=== PATIENT | female | born 1935 | race Caucasian/White ===

== ENCOUNTER → 2017-04-03 | Outpatient (CLI) | payer OTHER, BC ==
[~2017-04-03] VITALS: Ht 165.1 cm; Wt 58.3 kg
[~2017-04-03] MED LIST: AMBIEN PO; AMITRIPTYLINE H10 M1 PO; AMITRIPTYLINE H25 M2 PO; APAP500 PO; AUGMENTIN 875875 MG PO; B-12; B-12 IJ; BENEFIBER1 G1; BENEFIBER1 G1 PO; CALCIUM 500 +1 EAC5 PO; CALTRATE-600 W1 EACH; CELEBREX 200 M200 MG PO; CENTRUM SILVER1 EAC1 PO; CENTRUM SILVER1 EAC4 PO; CITRACAL PLUS1 EACH PO; COMPLEX B-1001 EACH PO; CYMBALTA30 MG PO; EQL OMEGA 3 FI1 EACH PO; ESTRACE0.5 MG PO; ESTRODIAL PO; FIORICET; FIORINAL CAPSUL1 CA1 PO; FLEXERIL PO; GAVISCON ES CH1 EAC1 PO; GLUCOSAMINE &1 EAC1 PO; HYDROCODON-ACE1 EAC5 PO; HYDROCODON-ACE1 EACH PO; LEVOTHROID100 MC1 PO; LEVOTHYROXIN0.075 MG PO; LEVOXYL75 MCG PO; LOMOTIL TABLET1 EACH PO; LUTEIN 15 MG S1 EACH PO; MAALOX PLUS X PO; MEDROLDOSEPACK PO; MOBIC7.5 MG PO; NEXIUM40 MG PO; OMEPRAZOLE40 MG PO; ONDANSETRON HCL4 M2 PO; OSTEO BI FLEX; PANTOPRAZOLE SO40 M1 PO; PREMARIN0.3 MG PO; PROBIOTIC1 EAC1 PO; REMERON15 MG PO; STOOL SOFTENER1 EAC2 PO; TRAMADOL; TRAMADOL 50 MG50 MG PO; TUMS PO; VITAMIN B 12 PO; VITAMIN B-125000 MCG SL; VITAMIN D-32000 UNIT PO; VITAMIN D35000 UNI1 PO; XANAX 0.5 MG0.5 MG PO; XANAX XR1 MG PO; [UNRECOGNIZED DRUG - OTHER]
[2017-04-03 13:17] VITALS: BP 112/62
== END ==
LOC: PAIN 07:14
DX: M47.22 Other spondylosis with radiculopathy, cervical region (principal); M48.02 Spinal stenosis, cervical region; M50.320 Other cervical disc degeneration, mid-cervical region, unspecified level; M53.3 Sacrococcygeal disorders, not elsewhere classified; M54.5 Low back pain; F32.9 Major depressive disorder, single episode, unspecified; Z79.899 Other long term (current) drug therapy

== ENCOUNTER → 2018-02-10 | Outpatient (CLI) | payer OTHER, BC ==
[~2018-02-10] VITALS: Ht 165.1 cm; Wt 59.5 kg
[~2018-02-10] MED LIST changes: +EXCEDRIN CAPLE1 EACH PO; +TYLENOL EXTRA500 MG PO
--- NOTE | ~2018-02-10 | HPC ---
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 The patient is in Pain Clinic today for a 25-minute consultation. She was last seen in March of 2017. In the last few months, she has had symptoms that have been consistent with TIA. I guess there has been some controversy. The hospitalist at a hospital in [place] diagnosed her with TIA. Dr. Lala, primary care physician felt that this might have been in question. She has had severe headaches since. These are occipital in nature then radiate into the frontal region. She has a history of migraines, but these have been different. Headaches have been daily with increasing intensity since she had the supposed TIAs. No additional workup has been done for possible carotid disease. She will be seeing her primary care physician soon in [place]. Today, she reports that overall her pain is 8/10 in the low back. She has pain in both the sacroiliac joints as well as some exquisite tenderness and discomfort in the left hip region. This is mostly overlying the trochanter. Pain is worse with standing and weightbearing. She is fairly comfortable in seated position. Medications include a list from the hospital, some of which she is not taking. When discharged from the hospital, she was given a prescription for ibuprofen 800 mg 3 times daily. She also brought with me her lab work from that hospitalization, which shows that she has an estimated glomerular filtration rate of 54. We talked about the potential nephrotoxicity of high-dose nonsteroidal anti-inflammatory drugs. She also has dyspepsia in the past. It is probably good that she has not been taking it. I think that may not be the best drug for her. Also considering that there are also issues associated with coagulation related to nonsteroidal anti-inflammatory drugs, I think she needs to be cautious with them. In the past, she has had a prescription for hydrocodone, although her primary care physician will not prescribe it for her. The dose that seems to be effective for is about one-half tablet of hydrocodone 5/325 tablet per day. This equates to a morphine mg equivalent of 5 per day. At maximum dose, it would be 10 per day. I had seen no reason why she should not take hydrocodone in lieu of the more dangerous nonsteroidal anti-inflammatory drugs in her situation. [address] [address] PAIN MANAGEMENT CONSULTATION Name: YEMI CHOI Room #: REG RAHEEM Dangelo#: [id number] Admission: 02/10/18 Attend Phys: Reno Ordaz MD Discharge: Date of : 35 Report #: [id number] She has always responded well to radiofrequency ablation of the L5 dorsal ramus, S1, S2 and S3 posterior rami. We have a technique that we have shown to be helpful over the years and the duration of response oftentimes is in excess of 6 months. I have agreed to schedule her back to the clinic for this procedure. I noted that we have in the past done both sides; however, more recently, we have been doing one side at a time as required by Medicare. She is on no blood thinners. PQRS reviewed on physical exam shows that she does have a history of osteoarthritis, particularly of the hip. She has a BMI of 21. Blood pressure is 132/70, heart rate 64. She is not a fall risk, having no use of cane or walker. She is on no blood thinners and no opioids at this time. The rest of physical exam reveals a jenny 82-year-old, appears younger than her stated age. She can independently move from sitting to standing without using her arms to push up from the chair. Good leg strength is noted. She has antalgic features, mostly due to pain in the left hip. Straight leg raising is negative. She has pain on the left with internal and external rotation and localized tenderness of the greater trochanter. Pain on the right is minimal with rotation of the hip joint. She does have a positive KIRK causing contralateral sacroiliac joint pain consistent with her hypermobility sacroiliac joint pain. IMPRESSION: 1. Post-laminectomy syndrome with fusion with bilateral sacroiliac joint pain, worse on the left. 2. Possible transient ischemic attack with no recent symptoms. 3. History of osteoarthritis of the hip with MRI evidence of labral tear in 2010. This is likely not improved. She now has similar symptoms on the left. PLAN: Follow up for sacroiliac joint radiofrequency ablation in 1 week. Given her good response historically, diagnostic injections are not necessary. By: [id number] Reno Ordaz MD /nt
[2018-02-10 10:13] VITALS: BP 132/70
== END ==
LOC: PAIN 07:07
DX: M53.3 Sacrococcygeal disorders, not elsewhere classified (principal); M96.1 Postlaminectomy syndrome, not elsewhere classified; M16.12 Unilateral primary osteoarthritis, left hip

== ENCOUNTER → 2018-02-17 | Outpatient (CLI) | payer OTHER, BC ==
[~2018-02-17] VITALS: Ht 165.1 cm; Wt 60.1 kg
--- NOTE | ~2018-02-17 | O ---
[facility] [place] [address] OPERATIVE REPORT Name: YEMI CHOI Room #: REG [facility] MMarti.#: [id number] Admission: 02/17/18 Attend Phys: Reno Ordaz MD Discharge: Date of : 35 Report #: [id number] THIS REPORT FOR: //name// CC: Reno Ordaz VENUS TOÑITOPATYJACKI A followup visit for chronic sacroiliac joint pain, sacroiliitis, status post laminectomy with fusion. She returns to clinic today for her radiofrequency procedure discussed in the note of 02/10/2018. We have received preauthorization. The procedure is well understood by the patient as this will be a repeat procedure. We have performed this intermittently since 2011 with good results. There have been no changes in her health history since our last visit. IMPRESSION: Lumbar spondylosis with sacroiliac joint pain, status post extensive lumbar fusion. PROCEDURE: Left sacroiliac joint denervation under fluoroscopic guidance. DESCRIPTION OF PROCEDURE: After informed consent, the patient was taken to fluoroscopic suite. She was placed prone, skin was prepped with ChloraPrep. Skin was anesthetized to the left of the sacrum and inferior. Two 20-gauge 15 cm RFK needles with 10-mm active tip were used for the procedure. [place] were advanced in tandem posterior to and parallel to the neural foramen. The first position was lateral to the lateral branches of S3. Once in position, motor and sensory testing was performed and then local anesthetic injected through each needle. 1% lidocaine was utilized. I then performed simultaneous denervation using 80 degrees for 90 seconds. I then walked the needles gently and carefully cephalad along the posterior table of the sacrum until the needles were positioned lateral to the S2 posterior foramen. The lateral views also confirmed good position. Testing was performed with appropriate responses. A 1 mL of lidocaine injected through each needle and simultaneous denervation once again for 90 seconds at 80 degrees centigrade. [place] were advanced at the third and final time to the S1 foramen, repeating the procedure at that level in the same fashion. Lateral radiographs taken at each level to confirm good position along with anterior and posterior view. The final step was to withdraw probes, and needles were advanced into position for the L5 dorsal ramus. This was approached with an inferolateral decline angle. They were carefully positioned at the sacral ala. Motor testing and sensory testing performed with appropriate responses. Lidocaine was injected 1% through each needle and lesioning performed at the L5 dorsal ramus. This procedure therefore provided full denervation of the left sacroiliac joint involving the S1 through S3 nerve roots, posterior branches and the L5 dorsal ramus for a total of 4 separate levels. Prior to removing the needles, I [address] [address] OPERATIVE REPORT Name: YEMI CHOI Room #: REG RAHEEM Dangelo#: [id number] Admission: 02/17/18 Attend Phys: Reno Ordaz MD Discharge: Date of : 35 Report #: [id number] injected as I withdrew 0.5% bupivacaine mixed with 20 mg of triamcinolone along the tract of each needle. She tolerated the procedure well. She was taken to recovery room for observation, was observed for approximately 30 minutes. Ice was placed over the area of injection. Her pain score at discharge was 0. Followup is planned as needed. <ELECTRONICALLY SIGNED> By: Reno Ordaz MD 02/17/18 1711 1534 1612 Reno Ordaz MD /nt
[2018-02-17 09:24] VITALS: BP 119/52
== END | disposition home or self-care (01) ==
LOC: PAIN 06:54
DX: M53.3 Sacrococcygeal disorders, not elsewhere classified (principal); G89.29 Other chronic pain; M47.896 Other spondylosis, lumbar region; Z98.890 Other specified postprocedural states; Z88.8 Allergy status to other drugs, medicaments and biological substances; Z79.891 Long term (current) use of opiate analgesic

== ENCOUNTER → 2018-11-24 | Outpatient (CLI) | payer OTHER, BC ==
[~2018-11-24] VITALS: Ht 165.1 cm; Wt 56.8 kg
[~2018-11-24] MED LIST changes: +CELEBREX 200 M200 M1 PO
[2018-11-24 12:34] VITALS: BP 127/70
--- NOTE | 2018-11-24 12:39 | NUR ---
Pain Clinic Assessment: 1. History of Osteoarthritis: Not Applicable History of Rheumatoid Arthritis: Not Applicable 2. Height: 5 ft. 5 in. 165.1 cm. Weight: 125.2 lb. oz. 56.790 kg. Patient's BMI: 20.8 3. Vital Signs: BP: 127/70 Pulse: 64 Resp: 16 Temp: 02 Sat: 99 ECG Mon: 4. Pain Intensity: 7-8 5. Fall Risk: Dizziness: N Needs help standing or walking: N Fallen in the last 3 months: N Fall risk comments: 6. Patient on Blood Thinner: None 7. History of Hypertension: N 8. Opioid Therapy greater than 6 weeks: N Opiate Contract Signed: 9. Risk Assessment Tool Provided: LOW 10. Functional Assessment Tool: 11. Recreational Drug Use: Never Drug Type: Tobacco Use: Never Smoker Tobacco Type: Amount or Packs/day: How Many Years: Alcohol Use: No Frequency: Quant:
--- NOTE | 2018-12-01 07:40 | HPC ---
[facility] [address] [place] [address] PAIN MANAGEMENT CONSULTATION Name: YEMI CHOI Room #: REG RAHEEM Derrek.#: [id number] Admission: 11/24/18 ������������������ Attend Phys: Reno Ordaz MD Discharge: ������������������ Date of : 35 Report #: [id number] THIS REPORT FOR: //name// CC: Reno LALA DATE OF SERVICE: 11/24/2018 CHIEF COMPLAINT: Followup visit for right hip pain and right sacroiliac joint pain. The patient is a longstanding patient in the pain clinic. She is here today complaining of severe pain in the right hip. She also reports that she has been diagnosed with Jeffy-Acuna virus, which is causing significant daytime fatigue. We also opined that she may be tired just because she is dealing with pain on a daily basis. She sleeps throughout the day and also at night. She was hospitalized in [place], [place] on more than one occasion, the month of August because of her lack of energy. She follows with Dr. Jasbir Lala and has upcoming tests planned. Pain today is a 7-8 constant, burning. It is in her right sacroiliac and she also has some left leg pain. She has pain in the right hip and has known osteoarthritis, which has responded to injections in the past with good benefit. She has also responded nicely to pain in the low back with radiofrequency lesioning of the sacral nerve roots. It has been sometime since we performed this. Most of her pain today seems to emanate from the right hip. MEDICATIONS: Celebrex, tramadol, acetaminophen, aspirin, APAP caffeine, alprazolam, Cymbalta, lactobacillus, levothyroxine, vitamin B, cholecalciferol. ALLERGIES: LORATADINE. PQRS REVIEW: She has osteoarthritis of the right hip. BMI of 20.8. Pain intensity 7-8/10. She is not a fall risk and has not fallen in the last 3 months, although she feels tired all of the time. She is not under treatment for hypertension and is on no blood thinners. She is currently not taking opioid medications. Denies use of tobacco or alcohol. PHYSICAL EXAMINATION: VITAL SIGNS: Blood pressure 127/70, heart rate 64. BMI is 20.8. She moves from sitting to standing position, walks with marked antalgic features. She has pain in the right hip with internal and external rotation. Pain radiates from the groin into the anterior thighs. She also has tenderness over the sacroiliac joint. She has an extensive scar across the lumbosacral region from a previous laminectomy with fusion. [address] [address] PAIN MANAGEMENT CONSULTATION Name: YEMI CHOI Room #: REG RAHEEM Dangelo#: [id number] Admission: 11/24/18 ������������������ Attend Phys: Reno Ordaz MD Discharge: ������������������ Date of : 35 Report #: [id number] IMPRESSION: 1. Chronic right hip pain with osteoarthritis. 2. Post-laminectomy with fusion with history of sacroiliitis due to hypermobility below the level of her fusion. 3. Jeffy-Acuna virus with significant fatigue. 4. History of anxiety and depression. RECOMMENDATION: Right hip injection under fluoroscopic guidance. PROCEDURE: She was taken to fluoroscopic suite after informed consent, placed in the supine position. Skin was prepped with ChloraPrep and a 22-gauge needle advanced into the joint capsule. A 0.25 mL of Omnipaque was injected and an excellent arthrogram was achieved. This was then followed by 5 mL of 0.5% bupivacaine mixed with 40 mg of triamcinolone. She tolerated the procedure well. Pain in the hip was 0 at discharge. She still had at some pain in the sacroiliac joint, may return in a month or so for additional treatment of the pain in her back. No medications were ordered. ��������������������������������������������� <ELECTRONICALLY SIGNED> ���������������������������������������� By: Reno Ordaz MD ��������������������������������������������� 12/01/18 0740 1723 0123 Reno Ordaz MD /nt
== END | disposition home or self-care (01) ==
LOC: PAIN 08:11
DX: M16.11 Unilateral primary osteoarthritis, right hip (principal); M53.3 Sacrococcygeal disorders, not elsewhere classified; G89.29 Other chronic pain; M96.1 Postlaminectomy syndrome, not elsewhere classified; B27.00 Gammaherpesviral mononucleosis without complication; F41.9 Anxiety disorder, unspecified; F32.9 Major depressive disorder, single episode, unspecified; Z79.899 Other long term (current) drug therapy; Z88.8 Allergy status to other drugs, medicaments and biological substances

== ENCOUNTER → 2018-12-22 | Outpatient (CLI) | payer OTHER, BC ==
[~2018-12-22] VITALS: Ht 165.1 cm; Wt 57.2 kg
[~2018-12-22] MED LIST changes: +CARAFATE1 GM/10 ML PO
[2018-12-22 12:38] VITALS: BP 158/68
--- NOTE | 2018-12-22 12:43 | NUR ---
Pain Clinic Assessment: 1. History of Osteoarthritis: Not Applicable History of Rheumatoid Arthritis: Not Applicable 2. Height: 5 ft. 5 in. 165.1 cm. Weight: 126.0 lb. oz. 57.153 kg. Patient's BMI: 21.0 3. Vital Signs: BP: 158/68 Pulse: 68 Resp: 16 Temp: 02 Sat: 100 ECG Mon: 4. Pain Intensity: 5 5. Fall Risk: Dizziness: N Needs help standing or walking: N Fallen in the last 3 months: N Fall risk comments: 6. Patient on Blood Thinner: None 7. History of Hypertension: N 8. Opioid Therapy greater than 6 weeks: N Opiate Contract Signed: 9. Risk Assessment Tool Provided: LOW 10. Functional Assessment Tool: 11. Recreational Drug Use: Never Drug Type: Tobacco Use: Never Smoker Tobacco Type: Amount or Packs/day: How Many Years: Alcohol Use: No Frequency: Quant:
--- NOTE | 2018-12-24 15:29 | HPC ---
[facility] [address] [place] [address] PAIN MANAGEMENT CONSULTATION Name: YEMI HCOI Room #: REG RAHEEM Derrek.#: [id number] Admission: 12/22/18 ������������������ Attend Phys: Reno Ordaz MD Discharge: ������������������ Date of : 35 Report #: [id number] THIS REPORT FOR: //name// CC: Reno LALA DATE OF SERVICE: 12/22/2018 CHIEF COMPLAINT: Followup visit for post-laminectomy syndrome with radiculopathy. Chronic sacroiliac joint pain with instability. The patient returns to pain clinic today and we had originally talked about performing a sacroiliac joint radiofrequency ablation procedure, which has been helpful in the past. Her pain, however, has changed some since I last saw her just about a month ago. She now has clear radiculopathy emanating from the low back radiating through the L5-S1 distribution into the left leg and foot. It is worse with standing and weightbearing. She has an extensive fusion, the base of which is in the pedicle of L5. There is unstable segment at L5-S1 and also she puts additional significant amount of stress on the sacroiliac joint. I do not have a recent MRI, but there is evidence from previous studies that there is some anterolisthesis of L4 in relationship to L5 below the level of fusion. Neural foraminal narrowing is anticipated in this region. PHYSICAL EXAMINATION: GENERAL: She is a pleasant, outgoing 83-year-old. Her blood pressure is 158/68, heart rate 68, respirations 16. She moves from a sitting to standing position. Her gait is antalgic. She has a walker today. She has pain across her low back, pain with forward flexion, extension, which is limited by her fusion. Straight leg raising on the left reproduces pain following an L5 distribution. No focal weakness is noted, but there is generalized weakness of the lower extremities, a bit worse on the left in comparison to the right. IMPRESSION: Left lumbar radiculopathy. Post-laminectomy with fusion. Unstable segment at L5-S1. RECOMMENDATIONS: L5-S1 epidural left paramedian under fluoroscopic guidance. PROCEDURE: She was taken to the fluoroscopic suite for treatment. She was placed prone, skin prepped with ChloraPrep. Skin anesthetized over the L5-S1 interspace. A 20-gauge Tuohy epidural needle advanced in the epidural space using loss of resistance technique. There was no blood or CSF aspirated. 1 mL of Omnipaque injected. Good spread of dye observed in the epidural space followed by 3 mL of 0.5% lidocaine mixed with 80 mg of triamcinolone. He [address] [address] PAIN MANAGEMENT CONSULTATION Name: YEMI CHOI Room #: REG RAHEEM Dangelo#: [id number] Admission: 12/22/18 ������������������ Attend Phys: Reno Ordaz MD Discharge: ������������������ Date of : 35 Report #: [id number] tolerated the procedure well and was observed for 45 minutes and discharged. Follow up as needed. ��������������������������������������������� <ELECTRONICALLY SIGNED> ���������������������������������������� By: Reno Ordaz MD ��������������������������������������������� 12/24/18 1529 1730 2117 Reno Ordaz MD /nt
== END | disposition home or self-care (01) ==
LOC: PAIN 06:58
DX: M54.16 Radiculopathy, lumbar region (principal); G89.29 Other chronic pain; M96.1 Postlaminectomy syndrome, not elsewhere classified; M53.3 Sacrococcygeal disorders, not elsewhere classified; Z98.890 Other specified postprocedural states; Z88.8 Allergy status to other drugs, medicaments and biological substances; Z79.899 Other long term (current) drug therapy